=== PATIENT | male | born 1955 | race Caucasian/White ===

== ENCOUNTER 2023-10-29 08:50 | Emergency (ER) | payer MEDICARE, OTHER ==
[2023-10-29] MEDS ORDERED: Lidocaine 1% (PF) 30 ML VIAL ONE (08:59)
[2023-10-29] MEDS ORDERED: Morphine 2 MG/ML VIAL ONE ×3 (09:15→11:55)
[2023-10-29] MEDS ORDERED: Boostrix 0.5 ML (Tdap) VIAL (>/=7 yrs of age) ONE (09:16)
[2023-10-29] MEDS ORDERED: Sodium Chloride 0.9% 1,000 ML ONE ×2 (09:16→09:41)
[2023-10-29] MEDS ORDERED: Ondansetron PF 4 MG/2 ML Vial ONE (09:16)
[2023-10-29 09:20] LABS: #Eosinphils 0.1 thou/uL (0.0-0.7); #Lymphocytes 1.8 thou/uL (1.20-3.40); #Monocytes 0.5 thou/uL (0.11-0.59); #Neutrophils 6.8 thou/uL (1.40-6.50); %Basophils 0.4 % (0.0-1.0); %Eosinophils 1.2 % (0.0-10.0); %Lymphocytes 19.2 % (21.0-51.0); %Monocytes 5.7 % (0.0-10.0); %Neutrophils 73.4 % (42.0-75.0); Hematocrit 36.4 % (42.0-52.0); Hemoglobin 12.5 g/dL (14.0-18.0); Mean Corpuscular HGB CONC 34.2 g/dL (32.0-36.0); Mean Corpuscular Hemoglobin 29.2 pg (27.0-31.0); Mean Corpuscular Volume 85.2 fl (78.0-98.0); Mean Platelet Volume 7.5 fL (7.4-10.4); Platelet Count 197 10x3/uL (130-400); RBC Distribution Width 12.3 % (11.5-14.5); Red Blood Cell (RBC) Count 4.27 mill/uL (4.70-6.10); White Blood Cell (WBC) Count 9.2 10x3/uL (4.8-10.8)
[2023-10-29] MEDS ORDERED: Sodium Chloride 0.9% 100 ML ONE (09:24)
[2023-10-29] MEDS ORDERED: CEFAZOLIN 1 GM VIAL ONE (09:24)
[2023-10-29 09:29] LABS: INR-International Normal Ratio 1.1; PTT 29.2 sec (22.9-36.1); Prothrombin Time 14.3 sec (12.0-14.7)
[2023-10-29 09:37] LABS: ALT (SGPT) 21 U/L (8-55); AST (SGOT) 14 U/L (5-34); Albumin 4.3 g/dL (3.4-4.8); Alkaline Phosphatase 83 U/L (40-110); Anion Gap 17 mmol/L (10-20); BUN (Urea Nitrogen) 19 mg/dL (8.4-25.7); Bilirubin, Total 0.8 mg/dL (0.2-1.2); Calc. Creatinine Clearance 0 mL/min (70-130); Calcium 9.4 mg/dL (7.8-10.44); Carbon Dioxide 19 mmol/L (23-31); Chloride 108 mmol/L (98-107); Estimated GFR 62; Globulin 2.6 g/dL (2.4-3.5); Glucose 150 mg/dL (80-115); Potassium 3.7 mmol/L (3.5-5.1); Protein, Total 6.9 g/dL (5.8-8.1); Sodium 140 mmol/L (136-145)
[2023-10-29] MEDS ORDERED: traMADol HCl 50 MG TAB ONE (11:56)
== END 2023-10-29 12:15 | disposition home or self-care (01) ==
LOC: NAV ERS 08:50
DX: S66.320A Laceration of extensor muscle, fascia and tendon of right index finger at wrist and hand level, initial encounter (principal); S61.411A Laceration without foreign body of right hand, initial encounter; E11.9 Type 2 diabetes mellitus without complications; E78.00 Pure hypercholesterolemia, unspecified; I10 Essential (primary) hypertension; Z79.84 Long term (current) use of oral hypoglycemic drugs; Z79.899 Other long term (current) drug therapy; W31.2XXA Contact with powered woodworking and forming machines, initial encounter
CPT/HCPCS: 36416; 80053; 85025; 85610; 85730; 90715; 96365; 96375; 96376; J0690; J2001; J2272; J2405; J3490; J7050